=== PATIENT | female | born 1960 | race Caucasian/White ===

== ENCOUNTER 2018-12-06 02:01 | Emergency (ER) | payer MEDICAID, OTHER ==
[~2018-12-06] VITALS: Ht 162.6 cm; Wt 120.0 kg
[2018-12-06 02:05] VITALS: BP 160/107
[2018-12-06] MEDS ORDERED: diphenhydrAMINE 50 mg/ml inj IV ONE (03:00)
[2018-12-06] MEDS ORDERED: normal saline 1000ML IV soln IVB ONE (03:00)
[2018-12-06] MEDS ORDERED: ketorolac tromethamine 15mg/ml inj. IV ONE (03:00)
[2018-12-06] MEDS ORDERED: proCHLORperazine 10 MG/2 ml inj IV ONE (03:00)
[2018-12-06] MEDS ORDERED: SUMAtriptan succ. 6 MG/0.5ml vial SQ ONE (03:00)
[2018-12-06] MEDS ORDERED: SUMA100T PO (03:47)
--- NOTE | 2018-12-06 04:09 | NUR ---
PT ASLEEP IN ROOM. DR GAXIOLA NOTIFIED OF PT CONDITION. HE WANTS PT TO BE LEFT IN ROOM TO SLEEP UNTIL 0600
--- NOTE | 2018-12-06 04:42 | NUR ---
UPON DC, PT RE-EDUCATED ON SIDE EFFECTS OF MEDS AND NEED FOR FAMILY TO GIVE HER A RIDE HOME. SHE STATED UNDERSTANDING AND WILL CALL FAMILY FROM LOBBY.
== END 2018-12-06 04:43 | disposition home or self-care (01) ==
LOC: ER 02:01
DX: G43.909 Migraine, unspecified, not intractable, without status migrainosus (principal); R10.9 Unspecified abdominal pain; J35.1 Hypertrophy of tonsils; R07.0 Pain in throat; Z90.710 Acquired absence of both cervix and uterus
CPT/HCPCS: 96372; 96374; 96375; 99283; J0780; J1200; J1885; J7030; J3030

== ENCOUNTER 2021-08-24 11:23 | Emergency (ER) | payer MEDICAID ==
[~2021-08-24] VITALS: Ht 162.6 cm; Wt 120.0 kg
[2021-08-24 12:24] LABS: BASOPHILS % (AUTO) 0.4 % (0-1); EOSINOPHILS # (AUTO) 0.1 X10'3 (0-0.9); EOSINOPHILS % (AUTO) 2.2 % (0-6); HEMATOCRIT 42.7 % (35.0-45.0); HEMOGLOBIN 14.5 g/dl (12.0-16.0); LYMPHOCYTES # (AUTO) 2.5 X10'3 (1.1-4.8); LYMPHOCYTES % (AUTO) 38.3 % (21-51); MEAN CORPUSCULAR HEMOGLOBIN 29.3 PG (27.0-31.0); MEAN CORPUSCULAR HGB CONC 33.9 g/dL (33.0-36.5); MEAN CORPUSCULAR VOLUME 86.6 FL (78-98); MEAN PLATELET VOLUME 9.6 FL (7.4-10.4); MONOCYTES # (AUTO) 0.4 X10'3 (0-0.9); MONOCYTES % (AUTO) 6.2 % (2-12); NEUTROPHILS # (AUTO) 3.4 X10'3 (1.8-7.7); NEUTROPHILS % (AUTO) 52.9 % (42-75); PLATELET COUNT 223 X10'3 (140-440); RED BLOOD COUNT 4.93 X10'6 (4.20-5.60); RED CELL DISTRIBUTION WIDTH 14.3 % (11.5-14.5); WHITE BLOOD COUNT 6.4 X10'3 (4.5-11.0)
[2021-08-24 12:29] LABS: ALANINE AMINOTRANSFERASE 34 U/L (12-78); ALBUMIN 3.8 G/DL (3.4-5.0); ALBUMIN/GLOBULIN RATIO 1.1 (1.1-1.5); ALKALINE PHOSPHATASE 62 IU/L (46-116); ANION GAP 8 (8-16); ASPARTATE AMINO TRANSFERASE 12 U/L (10-37); BILIRUBIN,TOTAL 0.7 MG/DL (0.1-1.0); BLOOD UREA NITROGEN 14 MG/DL (7-18); BUN/CREATININE RATIO 15.7 (6.6-38.0); CALCIUM 8.3 MG/DL (8.5-10.1); CHLORIDE 108 MMOL/L (99-107); CREATININE 0.89 MG/DL (0.40-0.90); GLUCOSE 95 MG/DL (70-104); SODIUM 143 MMOL/L (135-145); TOTAL CARBON DIOXIDE 26.7 MMOL/L (24-32); TOTAL PROTEIN 7.3 G/DL (6.4-8.2); eGFR 65 ML/MIN
[2021-08-24 12:37] LABS: MAGNESIUM 2.1 MG/DL (1.5-2.4)
[2021-08-24 12:44] VITALS: BP 139/68
== END 2021-08-24 13:26 | disposition home or self-care (01) ==
LOC: ER 11:24
DX: R00.2 Palpitations (principal); R03.0 Elevated blood-pressure reading, without diagnosis of hypertension; F43.0 Acute stress reaction; R07.89 Other chest pain; G43.909 Migraine, unspecified, not intractable, without status migrainosus; R06.02 Shortness of breath; Z90.710 Acquired absence of both cervix and uterus
CPT/HCPCS: 36415; 71045; 80053; 83735; 83880; 84484; 85025; 93005; 99285

== ENCOUNTER 2021-11-09 13:43 | Emergency (ER) | payer MEDICAID ==
[~2021-11-09] VITALS: Ht 162.6 cm; Wt 118.2 kg
[2021-11-09 14:59] VITALS: BP 149/62
[2021-11-09] MEDS ORDERED: CYCL-394 PO (18:15)
[2021-11-09] MEDS ORDERED: IBUP-1985 PO (18:15)
[2021-11-09] MEDS ORDERED: ketorolac trometh. 30mg/ml inj. IM ONE (18:15)
[2021-11-09] MEDS ORDERED: orphenadrine citrate 60mg/2ml inj. IM ONE (18:15)
[2021-11-09] MEDS ORDERED: METH4TAB81 PO (18:15)
== END 2021-11-09 18:37 | disposition home or self-care (01) ==
LOC: ER 13:44
DX: M54.32 Sciatica, left side (principal); G89.29 Other chronic pain; G43.909 Migraine, unspecified, not intractable, without status migrainosus; Z90.710 Acquired absence of both cervix and uterus; Z79.899 Other long term (current) drug therapy
CPT/HCPCS: 96372; 99284; J1885; J2360

== ENCOUNTER 2022-02-10 10:48 | Emergency (ER) | payer MEDICAID ==
[~2022-02-10] VITALS: Ht 162.6 cm; Wt 120.9 kg
[~2022-02-10 10:48] MED LIST: IBUP-1985 PO; METH4TAB81 PO
[2022-02-10 11:22] LABS: BASOPHILS % (AUTO) 0.3 % (0-1); EOSINOPHILS # (AUTO) 0.2 X10'3 (0-0.9); HEMATOCRIT 44.1 % (35.0-45.0); HEMOGLOBIN 15.1 g/dl (12.0-16.0); LYMPHOCYTES # (AUTO) 3.6 X10'3 (1.1-4.8); LYMPHOCYTES % (AUTO) 42.6 % (21-51); MEAN CORPUSCULAR HEMOGLOBIN 29.8 PG (27.0-31.0); MEAN CORPUSCULAR HGB CONC 34.4 g/dL (33.0-36.5); MEAN CORPUSCULAR VOLUME 86.6 FL (78-98); MEAN PLATELET VOLUME 9.4 FL (7.4-10.4); MONOCYTES # (AUTO) 0.4 X10'3 (0-0.9); MONOCYTES % (AUTO) 5.1 % (2-12); NEUTROPHILS # (AUTO) 4.3 X10'3 (1.8-7.7); PLATELET COUNT 226 X10'3 (140-440); RED BLOOD COUNT 5.09 X10'6 (4.20-5.60); RED CELL DISTRIBUTION WIDTH 14.1 % (11.5-14.5); WHITE BLOOD COUNT 8.6 X10'3 (4.5-11.0)
[2022-02-10 12:23] LABS: ALANINE AMINOTRANSFERASE 29 U/L (12-78); ALBUMIN/GLOBULIN RATIO 1.2 (1.1-1.5); ALKALINE PHOSPHATASE 68 IU/L (46-116); ASPARTATE AMINO TRANSFERASE 14 U/L (10-37); BILIRUBIN,TOTAL 0.6 MG/DL (0.1-1.0); BLOOD UREA NITROGEN 19 MG/DL (7-18); BUN/CREATININE RATIO 23.8 (6.6-38.0); CALCIUM 8.8 MG/DL (8.5-10.1); GLUCOSE 93 MG/DL (70-104); MAGNESIUM 1.9 MG/DL (1.5-2.4); TOTAL CARBON DIOXIDE 21.9 MMOL/L (24-32); TOTAL PROTEIN 7.4 G/DL (6.4-8.2); eGFR 73 ML/MIN
[2022-02-10 12:49] LABS: ANION GAP 11 (8-16); CHLORIDE 107 MMOL/L (99-107); POTASSIUM 3.9 MMOL/L (3.5-5.1); SODIUM 140 MMOL/L (135-145)
[2022-02-10] MEDS ORDERED: normal saline 1000ML IV soln IVB ONE (12:55)
[2022-02-10] MEDS ORDERED: ketorolac tromethamine 15mg/ml inj. IV ONE (13:20)
[2022-02-10 14:19] VITALS: BP 134/87
== END 2022-02-10 14:22 | disposition home or self-care (01) ==
LOC: ER 10:48
DX: R00.8 Other abnormalities of heart beat (principal); G43.909 Migraine, unspecified, not intractable, without status migrainosus; R11.2 Nausea with vomiting, unspecified; R42 Dizziness and giddiness; E86.0 Dehydration; R06.02 Shortness of breath; I49.9 Cardiac arrhythmia, unspecified; G89.29 Other chronic pain; Z90.710 Acquired absence of both cervix and uterus; Z79.899 Other long term (current) drug therapy
CPT/HCPCS: 36415; 71045; 80053; 83735; 83880; 84484; 85025; 93005; 96361; 96374; 99285; J1885; J7030

== ENCOUNTER 2023-07-16 17:40 | Emergency (ER) | payer MEDICAID ==
[~2023-07-16] VITALS: Ht 154.9 cm; Wt 123.6 kg
[2023-07-16 23:24] VITALS: BP 176/83; PULSE 68; RESP 18; TEMP 97.2; O2SAT 97
== END 2023-07-16 23:58 | disposition left against medical advice (07) ==
LOC: ER 17:40
DX: S90.32XA Contusion of left foot, initial encounter (principal); Z53.21 Procedure and treatment not carried out due to patient leaving prior to being seen by health care provider; W19.XXXA Unspecified fall, initial encounter; Y93.89 Activity, other specified; Y92.89 Other specified places as the place of occurrence of the external cause; Y99.8 Other external cause status
CPT/HCPCS: 73630; 99281

== ENCOUNTER 2023-11-12 10:42 | Emergency (ER) | payer MEDICAID ==
[~2023-11-12] VITALS: Ht 162.6 cm; Wt 125.0 kg
[2023-11-12 11:30] LABS: BASOPHILS % (AUTO) 0.5 % (0-1); EOSINOPHILS # (AUTO) 0.2 X10'3 (0-0.9); EOSINOPHILS % (AUTO) 2.2 % (0-6); HEMATOCRIT 44.1 % (35.0-45.0); HEMOGLOBIN 14.9 g/dl (12.0-16.0); LYMPHOCYTES # (AUTO) 2.3 X10'3 (1.1-4.8); LYMPHOCYTES % (AUTO) 33.7 % (21-51); MEAN CORPUSCULAR HEMOGLOBIN 29.6 PG (27.0-31.0); MEAN CORPUSCULAR HGB CONC 33.8 g/dL (33.0-36.5); MEAN CORPUSCULAR VOLUME 87.5 FL (78-98); MEAN PLATELET VOLUME 8.9 FL (7.4-10.4); MONOCYTES # (AUTO) 0.5 X10'3 (0-0.9); MONOCYTES % (AUTO) 6.8 % (2-12); NEUTROPHILS # (AUTO) 3.9 X10'3 (1.8-7.7); NEUTROPHILS % (AUTO) 56.8 % (42-75); PLATELET COUNT 253 X10'3 (140-440); RED BLOOD COUNT 5.03 X10'6 (4.20-5.60); RED CELL DISTRIBUTION WIDTH 14.2 % (11.5-14.5); WHITE BLOOD COUNT 6.9 X10'3 (4.5-11.0)
[2023-11-12 11:37] LABS: ALANINE AMINOTRANSFERASE 27 U/L (12-78); ALBUMIN 3.7 G/DL (3.4-5.0); ALBUMIN/GLOBULIN RATIO 0.8 (1.1-1.5); ALKALINE PHOSPHATASE 71 IU/L (46-116); ANION GAP 6 (8-16); ASPARTATE AMINO TRANSFERASE 18 U/L (10-37); BILIRUBIN,TOTAL 0.6 MG/DL (0.1-1.0); BLOOD UREA NITROGEN 17 MG/DL (7-18); BUN/CREATININE RATIO 21.3 (10.0-20.0); CALCIUM 9.1 MG/DL (8.5-10.1); CHLORIDE 104 MMOL/L (99-107); GLUCOSE 111 MG/DL (70-104); SODIUM 137 MMOL/L (135-145); TOTAL CARBON DIOXIDE 27.1 MMOL/L (24-32); TOTAL PROTEIN 8.6 G/DL (6.4-8.2); eCRCL 62 ML/MIN; eGFR 72 ML/MIN
[2023-11-12 11:46] LABS: PRO BRAIN NATRIURETIC PEPTIDE < 30 PG/ML (0-125)
[2023-11-12 14:29] VITALS: BP 153/92; PULSE 91; RESP 16; TEMP 98.3; O2SAT 96
== END 2023-11-12 15:57 | disposition home or self-care (01) ==
LOC: ER 10:43
DX: R07.89 Other chest pain (principal)
CPT/HCPCS: 36415; 80053; 83880; 84484; 85025; 93005; 99285

== ENCOUNTER 2025-09-14 21:15 | Inpatient (IN) | payer MEDICAID ==
[~2025-09-14] VITALS: Ht 162.6 cm; Wt 129.5 kg
[~2025-09-14 21:15] MED LIST changes: -IBUP-1985 PO; +IBUP600T52 PO
[2025-09-14 22:21] LABS: MEAN PLATELET VOLUME 9.1 FL (7.4-10.4); RED CELL DISTRIBUTION WIDTH 14.1 % (11.5-14.5)
[2025-09-14 22:36] LABS: CREATININE 0.91 MG/DL (0.40-0.90); TOTAL CARBON DIOXIDE 29.4 MMOL/L (24-32); eCRCL 43 ML/MIN; eGFR 62 ML/MIN
--- NOTE | 2025-09-15 00:46 | Physician Documentation ---
History of Present Illness General Chief Complaint: Abdominal Pain Stated Complaint: GALLBLADDER PAIN Time Seen by MD: 00:39 Primary Medical Doctor: UNKNOWN History of Present Illness Initial Comments This is a 64-year-old female with a recent diagnosis of cholelithiasis during the biliary colic that she had experienced last week while visiting her daughter in [place], presents for evaluation of right upper quadrant abdominal pain that began 67 hours prior to arrival. No obvious trigger provocation. It is accompanied by bilious vomitus. No particular palliating or aggravating factors were elicited with the patient. Did not attempt to treat it. This is similar to prior biliary colic she had last week. Denies any fever or chills. Denies chest pain or difficulty breathing. Denies any concern for tobacco, alcohol or illicit substances use. Medication Reconciliation Allergies: Coded Allergies: No Known Allergies (Unverified , 11/12/23) Scheduled Ibuprofen (Ibuprofen), 1 TAB PO Q8H Methylprednisolone (Medrol Dosepak), 1 PACKET PO UD Past Medical History Past Medical History: Headache, Migraine, Chronic Back Pain Past Surgical History: hysterectomy Other Past Family History: Father - [place] before 55 Alcohol Use: None Drug Use: none Lives with: Family Lives In: Home Review of Systems ROS 10 point review of systems was performed and unless noted above in HPI is negative for acute process/complaint. Physical Exam Physical Exam Vital Signs: Temperature: 97.6, Source: Temporal, Heart Rate: 85, Respiratory Rate: 15, BP: 181/91, Pulse Oximetry: 98, Weight: 132.000 Physical Exam GENERAL: Awake, alert, oriented, GCS 15, no apparent distress, non-toxic appearing, answers questions, follows commands appropriately. Examined in bed 6. HEENT: Atraumatic, normocephalic, pupils equal, extraocular muscles intact, sclerae anicteric, mucus membranes moist, oropharynx is clear, no stridor. NECK: supple, full active range of motion, trachea midline, no thyromegaly, no lymphadenopathy, no JVD. CARDIOVASCULAR: regular rate/rhythm, no murmurs/gallops/rubs, Pulses are 2+ in all extremities and symmetric. Capillary refill less than 2 seconds. PULMONARY: Nonlabored, good air movement ,no respiratory distress, speaking in full sentences, clear to auscultation bilaterally, no wheezing, no ronchi, no rales, no accessory muscle use. GASTROINTESTINAL: Soft, right upper quadrant tenderness to palpation reproducing chief complaint with a positive Aguilera's sign, no guarding or rebound, non- distended, normal active bowel sounds, no organomegaly, no pulsatile masses, no CVA tenderness. NEUROLOGIC: Lucid with normal mental status. Normal facial symmetry. Moves all extremities symmetrically and with purpose. No truncal ataxia. Speech is fluid without evidence of dysarthria or aphasia, no focal deficits appreciated. MUSCULOSKELETAL: There is full range of motion of all extremities. There is no joint pain or joint swelling or joint erythema. There is no muscle pain or tenderness or swelling. EXTREMITIES: warm, well-perfused, no cyanosis, no clubbing, no edema, no acute deformities. Skin: warm, dry, no rashes or lesions, no jaundice, no petechiae orpurpura. No ecchymosis. PSYCHIATRIC: Normal affect, normal insight, normal concentration. Focused exam: [] Progress Results/Orders Results/Orders Orders - SABRINA MACARIO DO Ultrasound Of Abdomen (09/15/25 ) Ct Abdomen Pelvis (09/15/25 00:41) Hs Troponin I W Calculations (09/15/25 02:41) Completed Orders - SABRINA MACARIO DO Hcg, Ur Ql (09/14/25 21:23) Cbc/Diff (09/14/25 21:23) BMP (09/14/25 21:23) Lipase (09/14/25 21:23) CMP (09/14/25 21:23) Ultrasound Of Abdomen (09/15/25 ) Electrocardiogram (09/15/25 00:41) Ct Abdomen Pelvis (09/15/25 00:41) Hs Troponin I W Calculations (09/15/25 00:41) Morphine 4mg/Ml Inj. (Morphine Inj.) (09/15/25 00:45) Ondansetron Inj. (Zofran 4mg/2ml Vial) (09/15/25 00:45) Normal Saline 1000ml (0.9% Sodium Chlori (09/15/25 00:45) Ua W/Microscopic, Cult If Ind (09/15/25 00:50) Medications Received in ER Medications (Trade) Dose Ordered Sig/Donal Route PRN Reason Start Time Stop Time Status Last Admin Dose Admin (morphine inj.) 4 mg ONCE ONCE IV 09/15/25 00:45 09/15/25 00:51 DC 09/15/25 01:36 4 MG (Zofran 4mg/2ml vial) 4 mg ONCE ONCE IV 09/15/25 00:45 09/15/25 00:51 DC 09/15/25 01:37 4 MG Sodium Chloride 1,000 ml @ 1,000 mls/hr ONCE ONCE IV 09/15/25 00:45 09/15/25 01:44 DC 09/15/25 01:37 1,000 MLS/HR Vital Signs 09/14/25 09/15/25 21:21 01:50 Temp 97.6 97.6 Pulse 85 74 Resp 15 18 B/P (MAP) 181/91 179/107 (131) Pulse Ox 98 93 Laboratory Tests Test 09/14/25 21:54 09/15/25 00:50 09/15/25 02:46 White Blood Count 8.4 Red Blood Count 5.03 Hemoglobin 14.7 Hematocrit 43.1 Mean Corpuscular Volume 85.7 Mean Corpuscular Hemoglobin 29.2 Mean Corpuscular Hemoglobin Concent 34.1 Red Cell Distribution Width 14.1 Platelet Count 258 Mean Platelet Volume 9.1 Neutrophils (%) (Auto) 55.3 Lymphocytes (%) (Auto) 36.0 Monocytes (%) (Auto) 6.0 Eosinophils (%) (Auto) 2.1 Basophils (%) (Auto) 0.6 Neutrophils # (Auto) 4.7 Lymphocytes # (Auto) 3.0 Monocytes # (Auto) 0.5 Eosinophils # (Auto) 0.2 Basophils # (Auto) 0.0 CBC Comment Sodium Level 142 Potassium Level 4.0 Chloride Level 105 Carbon Dioxide Level 29.4 Anion Gap 8 Blood Urea Nitrogen 15 Creatinine 0.91 H Estimated GFR/1.73 m2 62 BUN/Creatinine Ratio 16.5 Glucose Level 114 H Calcium Level 8.7 Total Bilirubin 0.4 Aspartate Amino Transf (AST/SGOT) 12 Alanine Aminotransferase (ALT/SGPT) 26 Alkaline Phosphatase 71 Troponin I High Sensitivity 4 Total Protein 7.3 Albumin 3.9 Globulin 3.4 Albumin/Globulin Ratio 1.1 Lipase 31 Chemistry Comments Urine Specimen Description Non-specified Urine Color Yellow Urine Clarity Slightly cloudy Urine pH 6.0 Urine Specific [place] >=1.030 Urine Protein Negative Urine Glucose (UA) Negative Urine Ketones Trace H Urine Occult Blood Negative Urine Nitrite Positive H Urine Bilirubin Negative Urine Urobilinogen 0.2 Urine Leukocyte Esterase Negative Urine RBC 0-2 Urine WBC 0-4 Urine Squamous Epithelial Cells Many Urine Bacteria 4+ Urine Mucus Moderate Urine Culture Indicated Rejected for culture Volume Urine Centrifuged 5 ml Urine HCG, Qualitative Negative Urine Comment Low volume EKG/XRAY/CT/US/VASC/MRI EKG : Additional Comment EKG was obtained and interpreted by myself shows sinus rhythm of 74, normal AL interval, narrow QRS, no QT prolongation, normal axis, no STEMI. Medical Decision Making Additional information obtaine: old records Findings Facility Status: ED Holds, [facility] process The plan was discussed with the patient, who demonstrates clear understanding of the plan and is in agreement with the plan unless otherwise noted in the chart. All questions have been answered, all concerns were addressed unless otherwise documented. I was available throughout their ED stay for frequent reassessment and questions. Differential Diagnoses (considered and possible or likely): [Differential diagnosis considered includes acute appendicitis, acute cholecystitis, pancreatitis, gastritis, PUD, diverticulitis, mesenteric ischemia, abdominal aortic aneurysm, bowel obstruction, enteritis, colitis, fecal impaction, volvulus, IBS, inflammatory bowel disease, specific food intolerance, peritonitis, perforated viscous, malignancy, UTI, abscess, and abdominal pain NOS. Pelvic source of pain was also considered including endometritis, dysmenorrhea, ovarian cyst, ovarian torsion, PID, TOA, cervicitis, vaginitis, or uterine fibroid. History, physical exam, and workup exclude many of the more serious causes listed above. ] ??Differential Diagnoses (considered and unlikely, not requiring evaluation currently): [Aortic/great vessels dissection was considered but it is unlikely based on absence of ripping, tearing, migratory chest pain, absence of syncope or focal neurologic deficits, physical examination indicating equal and symmetric pulses.] MDM Data Please see HPI for the following: Independent Historians and external Records Review. Historian: [Patient] Independent Historians: ?[Record review] Medication Management: [Reviewed medication list] Social History and determinants: [Reviewed] Please see the body of the note for the following: Any independent interpr etations of ECG, imaging studies. All vitals signs/haemodynamics, ordered tests were independently reviewed and interpreted by myself. Nursing triage complaint and vitals reviewed, additional nursing notes were reviewed as available and I agree unless otherwise noted or documented in contradiction in the chart Vital Signs: Independently reviewed Labs: Independently interpreted Imaging: Independently interpreted Old Medical Records: Independently reviewed, see HPI for relevant summary and information Pulse Oximetry: [96%] interpreted as [normal on room air] by me [Ski Maker: [Regular Rate, Regular rhythm, no ectopy, NSR] reviewed and interpreted by me] Additionally notably showing: [Hemodynamics reviewed. The patient isn't febrile, not tachycardic, no evidence of hypotension respiratory distress. CBC shows no leukocytosis, no neutrophilic predominance. Chemistry is unrema rkable. Liver function is normal. Lipase is normal. Troponin is negative. UA is nondiagnostic for UTI. Ultrasound of the abdomen shows positive Aguilera's sign, gallstones and distended gallbladder however the wall is still normal so as of the duct. The CT of the abdomen and pelvis was obtained showing cholelithiasis without secondary findings of cholecystitis or choledocholithiasis..] Tests considered but not ordered include: [Not applicable] Social Determinants of Health Impact: Patient was evaluated in [facility] [place] access to healthcare due to below par ratio of patient to medical providers. [] Comorbid Conditions Impacting Present Evaluation and Care/Treatment: [Known cholelithiasis] Management Discussions with other Healthcare Providers: [Hospitalist regarding admission] Treatment and Disposition Medication Management (Given or considered): [Fluid resuscitation was provided for treatment of clinically and/or laboratory apparent dehydration. Pain management.]. See EMR for details Consideration for Hospitalization/Escalation/Deescalation of Care: Admission for observation appears to be necessary for further management of her intractable abdominal pain related to her barrier colic and possible evaluation by General surgery in the morning. ?ED Course:?[No clinical improvement or deterioration. Continues to suffer i ntractable pain.] ?Shared decision making:?[] Code status:?FULL Please see the full Electronic Medical Record for full details of nursing documentation, medications list, other records of complete past medical history and conditions, vital signs, laboratory studies, and any radiologic study interpretations by radiologists. Portions of this note were completed using [employer]~Flow™ dictation software and as a result there may exist minor errors in spelling. I have reviewed elements of past family and social history and agree as included in note. Differential Diagnosis See body of main note for her differential diagnosis Departure Disposition: ADMITTED INPATIENT Impression: Primary Impression: Biliary colic Additional Impressions: Intractable abdominal pain Nausea and vomiting Referrals: NO PRIMARY CARE PROVIDER (PCP) Signature Scribe Signature: No scribe Attestation: Date: Sep 15, 2025 Time: 00:43 This note accurately reflects clinical decisions, work performed by myself, DO RENALDO Hays NICHOLAS M DO Sep 15, 2025 00:45
[2025-09-15 01:01] LABS: URINE HCG NEGATIVE (NEG)
[2025-09-15 01:02] LABS: LEUKOCYTE ESTERASE ,URINE NEGATIVE (Neg); NITRITES, URINE POSITIVE (Neg); OCCULT BLOOD,URINE NEGATIVE (Neg)
--- NOTE | 2025-09-15 01:04 | ELECTROCARDIOGRAPH REPORT ---
[facility] Test Date: 2025-09-15 Test Time: 01:01:10 Pat Name: JASSI MULLIGAN Department: [facility]- Patient ID: [facility]-[id number] Room: [place] [id number] Gender: F Diving Instructor: : 1960 Requested By: SABRINA MACARIO Order Number: [id number] Reading MD: Dr. Ryan Simpson Measurements Intervals [place] Rate: 74 P: 37 [place]: 177 QRS: 1 QRSD: 101 T: 4 QT: 400 QTc: 444 Interpretive Statements Sinus rhythm Consider left atrial enlargement Low voltage, precordial leads Borderline T abnormalities, anterior leads Electronically Signed On 09-17-2025 9:40:[address] Ryan Simpson Please click the below link to view image of tracing.
[2025-09-15 01:08] LABS: UA COLLECTION TYPE NON-SPECIFIED
[2025-09-15 01:10] LABS: MUCUS STRANDS MODERATE /LPF (Neg); SQUAMOUS EPITHELIAL CELL,UR MANY /LPF (FEW)
[2025-09-15] MEDS: morphine 4 MG/ML inj SYRINge IV ONE (01:36)
[2025-09-15] MEDS: normal saline 1000ml 1,000 ML IV ONE (01:37)
[2025-09-15] MEDS: ondansetron/PF 4mg/2ml inj IV ONE (01:37)
--- NOTE | 2025-09-15 02:16 | RADIOLOGY REPORT ---
INDICATION: RUQ pain and n/v TECHNIQUE: Multiple real-time sonographic images of the abdomen were obtained. COMPARISON: None FINDINGS: Liver is homogenous in echogenicity. The liver measures 13.2 cm. No intrahepatic biliary ductal dilatation is noted. Gallbladder appears distended. No overt wall thickening. Several gallstones are noted in the gallbladder neck. No surrounding edema. Sonographic Aguilera's sign is positive. The common duct measures 0.3 cm and is unremarkable. The right kidney measures 11.1 cm. No hydronephrosis. The pancreas is not well visualized due to obscuration from bowel gas. IMPRESSION: Somewhat equivocal findings with gallstones, gallbladder distention, and positive sonographic aguilera's sign however no wall thickening or surrounding edema to more definitively suggest acute cholecystitis at this time. Close follow-up recommended.
--- NOTE | 2025-09-15 02:37 | RADIOLOGY REPORT ---
Exam: CT CT ABDOMEN PELVIS W/ IV CONTRAST History: Right side of the abdominal pain COMPARISON: US ULTRASOUND OF ABDOMEN on DOS: 09/15/25 Technique: Multidetector spiral CT of the abdomen and pelvis was performed from lung bases to pubic symphysis. Intravenous contrast was administered during this examination. Portal venous imaging was obtained. Axial, coronal and sagittal multiplanar reformats were performed by the technologist on a separate workstation. Radiation Dose : 1. Abdomen/Pelvis: CTDIvol 29.22 mGy, DLP 1535.26 mGy*cm. CONTRAST: Type of contrast: Omnipaque 300 Contrast injected: 100 ml Findings: Lung Bases: No acute or significant lung base finding. Normal heart size. No pleural or pericardial effusion. Liver: The liver is normal in size. No focal lesions. Normal hepatic vascular enhancement. Gallbladder and Biliary Tree: Cholelithiasis noted without secondary findings of cholecystitis or biliary obstruction. Spleen: Unremarkable Pancreas: The pancreas is normal in appearance without focal lesions or abnormal enhancement. Adrenal Glands: Unremarkable Kidneys: No hydronephrosis. Bladder: Unremarkable Bowel: The stomach is grossly normal in appearance. Small bowel and colon are normal in caliber and distribution. Normal appendix is visualized in the right lower quadrant without findings of appendicitis. Ascites: Absent Lymphadenopathy: No mesenteric, retroperitoneal or periportal lymphadenopathy. Abdominal Wall and Mesentery: Unremarkable. Vasculature: The visualized abdominal aorta is normal in size and caliber. Abdominal and pelvic vessels demonstrate normal enhancement. Pelvic Organs: Unremarkable Musculoskeletal: No aggressive focal bony lesions, acute fractures or dislocation. IMPRESSION: No acute abdominal or pelvic finding. Radiation optimization: All CT scans at this facility use at least one of these dose optimization techniques: automated exposure control mA and/or kV adjustment per patient size (includes targeted exams where dose is matched to clinical indication) or iterative reconstruction.
[2025-09-15] MEDS: normal saline 1000ML IV soln IVB ONE (03:48)
[2025-09-15] MEDS: fentaNYL/PF 50MCG/1 ML 2ML syringe IV ONE (03:48)
[2025-09-15] MEDS ORDERED: magnesium sulf-water 2g/50mL 50 ML IV PRN (03:50)
[2025-09-15] MEDS ORDERED: potassium Cl 40MEQ/1/2NS 520ml 520 ML IV PRN (03:50)
[2025-09-15] MEDS ORDERED: potassium Cl 20 mEq SR tablet PO PRN ×2 (03:50)
[2025-09-15] MEDS ORDERED: magnesium Cl slow-release 64mg tablet PO PRN (03:50)
[2025-09-15] MEDS ORDERED: HYDROcodone/acetaminophen 5mg/325mg tablet PO PRN (03:50)
[2025-09-15] MEDS ORDERED: magnesium sulf-water 4G/100mL 100 ML IV PRN (03:50)
[2025-09-15] MEDS: piperacillin/tazo 4.5gm/100ml 100 ML IV ONE (04:08)
--- NOTE | 2025-09-15 04:15 | HISTORY AND PHYSICAL-Residence ---
History & Physical Providers to CC Resident Creating Document: CLARITA HAWTHORNE RES CC: JESSICA ARGUELLES MD ~ History of Present Illness Primary Medical Doctor: PATIENT DOES NOT REMEMBER HER PCP NAME Reason for Admit\Complaint: Right upper quadrant pain since yesterday evening History of Present Illness 64-year-old female with obesity, hypertension, GERD, presented to the ER with chief complaints of right upper quadrant pain since yesterday night. Patient stated she ate shrimp salad after that she felt sharp burning pain with intensity of 9/10 over the right upper quadrant with radiation to back. Pain is associated with nausea and multiple episodes of bilious vomitings. She denies hematemesis. Denies fever. Denies diarrhea/constipation. Denies no recent weight changes. Ten days ago she had similar kind of pain and went to ER in [facility] and was told she had gallstones. Allergies: Coded Allergies: No Known Allergies (Unverified , 11/12/23) Home Medications Home Medications Active Medrol Dosepak (Methylprednisolone) 4 Mg Tab.ds.pk 1 Packet PO UD Ibuprofen 600 Mg Tablet 1 Tab PO Q8H 10 Days Past Medical History Past Medical History Hypertension Plantar fasciitis GERD Obesity Past Surgical History Surgical History Comment Hysterectomy Back surgery Hip surgery Past Social History Social History Comment Nonsmoker, denies alcohol abuse Denies illicit drug use Independent for ADLs Alcohol Use: None Drug Use: None Lives with: Family Lives In: Home ROS ROS ROS Constitutional: No fever, dizziness, weakness. no change in appetite/weight HEENT: No blurring of the vision, No sore throat, epistaxis, tinnitus Cardiovascular: No chest pain/discomfort, palpitations, syncope. No pedal edema Respiratory: No sob, cough,, hemoptysis Gastrointestinal: Positive for abdominal pain, nausea, vomiting. No diarrhea, constipation, melena. Genitourinary: No frquency, urgency, incontinence, nocturia. No dysuria, hematuria Musculoskeletal: No arthralgia, myalgia Endocrine: No fatigue, polydipsia, polyuria. No heat or cold intolerance Neurologic: No headache, vertigo. No weakness, numbness or tingling of extremities Psychiatric: No hallucinations/delusions, no anhedonia, no suicidal ideation\ Hematologic: No bleeding or bruises Reviewed in full. All negative except for pertinent positives in HPI Exam Vitals: Vital Signs Date Time Temp Pulse Resp B/P (MAP) Pulse Ox O2 Delivery O2 Flow Rate FiO2 09/15/25 01:50 97.6 74 18 179/107 (131) 93 General: General: Pleasant elderly female, obese, AAO x4, not in apparent distress Head: Normocephalic with an atraumatic Eyes: Pupils- 3mm, reacting to light, conjunctiva- anicteric Nose and throat: No polyps, septum- normal, no mucosal ulcers Neck: Supple, no lymphadenopathy, no carotid bruit Respiratory: No use of accessory muscles of respiration, Bilateral normal vesiscular breath sounds heard. No wheeze, rhochi or creps Cardiac: S1-S2 heard, rythm regular, no gallop/murmur Abdomen: Obese, tenderness over the palpation in the right upper quadrant, no rigidity/guarding no organomegaly, bowel sounds- heard Extremities: no clubbing, no pedal edema, no deformities, peripheral pulses- 2+ Skin: warm and dry, no rash, no purpura Neuro: No focal deficit, gross cranial nerve exam- normal Diagnostic Data Last Recorded Lab Results: [id number]/[id number] Additional Plan 64-year-old female with obesity, hypertension, GERD, presented to the ER with chief complaints of right upper quadrant pain since yesterday night Biliary colic Acute cholelithiasis Unable to exclude acute cholecystitis -CBC normal, CMP common, lipase normal -ultrasound abdomen cholelithiasis, somewhat equivocal findings for gallbladder distention with positive sonographic Aguilera's sign however no wall thickening or surrounding edema to definitely suggest acute cholecystitis -CT abdomen cholelithiasis Plan -we will do HIDA scan for confirming cholecystitis -in the meanwhile continue Zosyn 3.375 q.8h, DC if cholecystitis is ruled out -continue morphine and Adin for pain -continue NS at 100 cc/hour -NPO and pending surgical consult Hypertension -continue losartan 25 mg once daily GERD -continue Protonix 40 mg p.o. once daily Obesity -would benefit from outpatient weight loss medications Code Status: Full code Line/tube: PIV DVT prophylaxis: Lovenox Nutrition: NPO PT: yes Prognosis: Guarded Disposition: Continue care in surgical floor, HIDA scan pending, pending surgical consult Clarita Hawthorne MD IM PGY-3 resident I saw and discussed the care of this patient with the resident team and I agree with the assessment and plan as documented Thank you Date of Service: Sep 15, 2025 Billing Provider: JESSICA ARGUELLES MD [facility] Sep 15, 2025 04:15 JESSICA ARGUELLES MD Sep 15, 2025 12:40
[2025-09-15] MEDS ORDERED: OMEP40CA21 PO (04:18)
[2025-09-15] MEDS ORDERED: LOSA25TA41 PO (04:18)
[2025-09-15] MEDS: normal saline 1000ml 1,000 ML IV SCH (04:21)
[2025-09-15 05:15] VITALS: BP 166/84; PULSE 82; RESP 15; TEMP 97.7; O2SAT 100
[2025-09-15] MEDS ORDERED: iohexol 300mg/ml 100ml inj. ONE (05:18)
[2025-09-15] MEDS: K and/or MAG REPLACEMENT MC SCH (08:00)
[2025-09-15 08:45] VITALS: RESP 16
[2025-09-15] MEDS: pantoprazole 40mg Tablet.DR PO SCH (08:46)
[2025-09-15] MEDS: docusate sod 100mg capsule PO SCH (08:47)
[2025-09-15] MEDS: ketorolac trometh 30MG/ML vial 30 MG/ML VIAL IV ONE (08:48)
[2025-09-15] MEDS: ondansetron/PF 4mg/2ml inj IV PRN (08:48)
[2025-09-15] MEDS: enoxaparin 40mg/0.4ml syringe SUBCUT SCH (08:49)
[2025-09-15 09:03] LABS: MEAN PLATELET VOLUME 9.8 FL (7.4-10.4); RED CELL DISTRIBUTION WIDTH 14.5 % (11.5-14.5)
[2025-09-15 09:25] LABS: CREATININE 0.85 MG/DL (0.40-0.90); TOTAL CARBON DIOXIDE 22.9 MMOL/L (24-32); eCRCL 46 ML/MIN; eGFR 67 ML/MIN
[2025-09-15 11:30] VITALS: BP 123/72; PULSE 79; RESP 16; TEMP 97.5; O2SAT 96
[2025-09-15] MEDS ORDERED: piperacillin/tazo 4.5gm/100ml 100 ML IV SCH (12:00)
--- NOTE | 2025-09-15 17:02 | RADIOLOGY REPORT ---
Procedure: NM NM HIDA SCAN Comparison: None Reason for study, clinical history: Right upper quadrant Technique: The patient was held NPO prior to the intravenous injection of 5.5 mCi of technetium 99m labeled Choletec. A dynamic acquisition was obtained in the anterior and posterior projection over the upper abdomen for 60 minutes. 2 mg of morphine was administered. Findings: There is prompt and homogeneous uptake of radiopharmaceutical within the liver. No large focal defects are seen. Overall the liver appears normal in size. Reflux of radiotracer activity into the stomach. Nonvisualization of the gallbladder. Morphine administration was performed. Persistent nonvisualization of the gallbladder after morphine administration. Prominent area of presumed focal uptake likely related to reflux in the duodenum and stomach Impression: 1. Favor gallbladder obstruction with nonvisualization despite morphine administration.
[2025-09-15 18:00] VITALS: BP 138/77; PULSE 61; RESP 16; TEMP 98; O2SAT 98
[2025-09-15 18:55] VITALS: BP 138/77; PULSE 61; RESP 16; TEMP 98; O2SAT 98
--- NOTE | 2025-09-15 19:06 | PROGRESS NOTE ---
Daily Progress Note Providers to CC ~ Antibiotic Timeout Antibiotic Ordered?: Yes Subjective The patient is states that her abdominal pain is improved, the patient does not endorse having increased abdominal pain with the eating food. The patient has a HIDA scan and the gallbladder was not visualized I did relayed this information to surgeon Dr. Herrera. The patient has no other complaints Objective Vital Signs Date Time Temp Pulse Resp B/P (MAP) Pulse Ox O2 Delivery O2 Flow Rate FiO2 09/15/25 18:02 16 09/15/25 11:30 97.5 79 123/72 (89) 96 Room Air 09/15/25 04:46 0 Result Diagram: 09/15/256 09/15/25245 Gen. No acute distress alert and oriented 4, morbidly obese Lungs clear to ascultation bilaterally, no wheezes rales or rhonchi appreciated Heart normal sinus rhythm no murmurs rubs or clicks noted Abdomen soft mild generalized tenderness, [id number] right upper quadrant tenderness bowel sounds are normoactive Lower extremities no clubbing cyanosis, nor edema appreciated bilaterally Problem\Assessment\Plan # acute cholecystitis Gallbladder was not visualized on HIDA scan I did relayed this information to on-call surgeon Dr. Herrera. Continue IV Zosyn #Hypertension -continue losartan 25 mg once daily #GERD -continue Protonix 40 mg p.o. once daily # morbid obesity -would benefit from outpatient weight loss Code Status: Full code Line/tube: PIV DVT prophylaxis: Lovenox Nutrition: NPO PT: yes Date of Service: Sep 15, 2025 Billing Provider: DORCAS PARK DO Common Visit Codes: NOT BILLABLE (Admitted after midnight to be billed by crop nutrition scientist) DORCAS PARK DO Sep 15, 2025 19:06
[2025-09-15] MEDS: piperacillin/tazo 4.5gm/100ml 100 ML IV SCH (21:12)
[2025-09-15] MEDS: FLU VACC TS2025-26(6MOS UP)/PF (FLULAVAL) 45 MCG/0.5 ML SYRINGE IMVAC ONE (21:12)
[2025-09-15 22:00] VITALS: BP 119/62; PULSE 75; RESP 14; TEMP 97.8; O2SAT 98
[2025-09-16] VITALS (31 sets, daily range): BP systolic 116–159; BP diastolic 61–126; PULSE 16–103; RESP 13–20; TEMP 97.3–98.2; O2SAT 94–98
[2025-09-16 05:30] LABS: MEAN PLATELET VOLUME 9.3 FL (7.4-10.4); RED CELL DISTRIBUTION WIDTH 14.3 % (11.5-14.5)
[2025-09-16 05:46] LABS: CHOL/HDL RATIO 3.0 (0.00-4.99); CREATININE 0.78 MG/DL (0.40-0.90); LDL CHOLESTEROL 94 MG/DL (50-100); TOTAL CARBON DIOXIDE 25.5 MMOL/L (24-32); eCRCL 63 ML/MIN; eGFR 74 ML/MIN
--- NOTE | 2025-09-16 12:28 | PROGRESS NOTE ---
Progress Note ID Providers to CC ~ Progress Note Progress Note: pt seen and examined-needs carlita miranda open-discussed procedure including risks/benefits/alternatives FREDERIC ANNE MD Sep 16, 2025 12:28
[2025-09-16 13:20] LABS: PRE OP INR 1.1 INR; PRE OP PROTIME 10.9 SECONDS (9.0-12.0)
[2025-09-16] MEDS: dextrose 50%-water 50ml dispensing syringe IV ONE ×2 (13:55→14:05)
[2025-09-16] MEDS ORDERED: BUPIVAcaine 2.5mg/ml inj 50ml vial (contains preservative) ONE (14:24)
[2025-09-16] MEDS ORDERED: HYDROmorphone/PF 0.2 MG/ML SYRINGE IV PRN (15:20)
[2025-09-16] MEDS ORDERED: fentaNYL/PF 50MCG/1 ML 2ML syringe IV PRN (15:20)
[2025-09-16] MEDS ORDERED: hydrALAZINE 20mg/ml inj. IV PRN (15:20)
[2025-09-16] MEDS ORDERED: ondansetron/PF 4mg/2ml inj IV PRN (15:20)
[2025-09-16] MEDS ORDERED: labetalol 20mg/4ml (5mg/ml) syringe IV PRN (15:20)
[2025-09-16] MEDS: BUPIVAcaine/PF 2.5 mg/ml (0.25%) 30ml vial IJ ONE ×2 (15:25→16:39)
[2025-09-16] MEDS ORDERED: propofol inj 20 ML IV ONE (15:27)
[2025-09-16] MEDS ORDERED: midazolam 1 mg/ML 2ml injection ONE (15:27)
[2025-09-16] MEDS ORDERED: fentaNYL/PF 50MCG/1 ML 2ML syringe ONE (15:27)
[2025-09-16] MEDS ORDERED: dexamethasone sod phosphate 4mg/ml inj. ONE (16:34)
[2025-09-16] MEDS ORDERED: ondansetron/PF 4mg/2ml inj ONE (16:34)
[2025-09-16] MEDS ORDERED: rocuronium 10mg/ml inj IV ONE (16:34)
[2025-09-16] MEDS ORDERED: glycopyrrolate 0.2mg/ml inj ONE (16:35)
--- NOTE | 2025-09-16 16:41 | OPERATIVE REPORT ---
Operative Report Providers to CC ~ Date of Procedure: Sep 16, 2025 Pre-Operative Diagnosis: cholelithiais/cholecystitis Post-Operative Diagnosis SAME as PRE-Op Procedure Performed carlita hernandez Surgeon: jacquelyn [employer] Consultant none Anesthesiologist: Devaughn Lechuga Type of Anesthesia: General Findings: cholecystitis/cholelithiasis Estimated Blood Loss: min Specimen Removed: FREDERIC Lugo MD Sep 16, 2025 16:40
[2025-09-16] MEDS ORDERED: PCA WASTE DOCUMENTATION 1 MG ML MC SCH (16:45)
[2025-09-16] MEDS ORDERED: HYDROcodone/acetaminophen 5mg/325mg tablet PO PRN (16:45)
[2025-09-16] MEDS ORDERED: HYDROmorphone inj. 0.5 MG/0.5 ML DISP.SYRIN IV PRN (16:50)
[2025-09-16] MEDS: acetaminophen 1,000mg/100ml IV 100 ML IV PRN (17:14)
[2025-09-16] MEDS: fentaNYL/PF 50MCG/1 ML 2ML syringe IV PRN (17:19)
--- NOTE | 2025-09-16 17:30 | OPERATIVE REPORT ---
DATE OF SURGERY: 09/16/2025 DICTATING PHYSICIAN: Sandeep Herrera MD PREOPERATIVE DIAGNOSES: Cholelithiasis with cholecystitis. POSTOPERATIVE DIAGNOSES: Cholelithiasis with cholecystitis. PROCEDURE PERFORMED: Robotic david. SURGEON: Sandeep Herrera MD CALENDERING SUPERVISOR: None. ANESTHESIA: General. DRAINS: None. INDICATIONS FOR OPERATION: The patient is a 64-year-old female who presents with abdominal pain. She had a positive HIDA scan as well as cholelithiasis on ultrasound. Taken to surgery for robotic cholecystectomy. INTRAOPERATIVE FINDINGS: Severe colicystitis with cholelithiasis. DESCRIPTION OF PROCEDURE: The patient was placed supine on the operating table. After induction of general anesthesia and placement of endotracheal tube, the abdomen was prepped and draped. A subumbilical incision was then made and Cheryl port placed using open technique. Pneumoperitoneum was begun by insufflation of CO2. Four ports were placed across the lower and mid abdomen, one in the left lower quadrant and one in the midline and two in the right. Robot was then brought to the field. Camera port docked, camera placed, camera targeted. Additional ports were then docked and instruments placed. Abdomen was then explored after the robot was brought to the field. Gallbladder fundus was grasped and retracted cephalad. Cystic duct identified, isolated, ligated, clipped and divided the cystic artery. The gallbladder was mobilized off the gallbladder fossa using electrocautery. Hemostasis was found to be adequate. Robotic instruments were removed from the field. After robotic instruments were removed, the gallbladder was placed in a lap bag using the laparoscope. Abdomen was then copiously irrigated with antibiotic-containing solution. Ports were then removed. Under laparoscopic vision with no evidence of active bleeding, final port and camera withdrawn as well as gallbladder was removed using Endobag. Hemostasis was found to be adequate. Wounds were closed in layers. Skin was closed with subcuticular stitch. Dressing was applied. The patient was transferred to recovery room in stable condition after reversing from general anesthesia. Sandeep Herrera MD TID: [id number] RECEIPT: [id number] KB/KRISTINE
--- NOTE | 2025-09-16 18:38 | CONSULTATION ---
DATE OF CONSULTATION: 09/16/2025 DICTATING PHYSICIAN: Sandeep Herrera MD REASON FOR CONSULTATION: Evaluation of abnormal HIDA scan. HISTORY OF PRESENT ILLNESS: The patient is a 64-year-old female who presented to the ER with complaints of abdominal discomfort, found to have cholelithiasis. HIDA scan was positive for cystic duct obstruction. Surgical evaluation was requested. On further questioning, the patient states pain is much improved. He has had cholelithiasis diagnosed in the past without surgical intervention. PAST MEDICAL HISTORY: Significant for obesity, hypertension, GERD, plantar fasciitis. PAST SURGICAL HISTORY: Hysterectomy, back procedure, hip procedure. HOME MEDICATIONS: Include methylprednisolone, Motrin as needed. ALLERGIES: None. SOCIAL HISTORY: The patient denies alcohol or drug use. REVIEW OF SYSTEMS: See H and P. PHYSICAL EXAMINATION: GENERAL: He is a well-nourished, obese female in minimal distress. VITAL SIGNS: Unremarkable. HEART: Regular rate and rhythm. LUNGS: Clear to auscultation. ABDOMEN: Minimal tenderness at the present time. No signs of peritonitis. EXTREMITIES: Unremarkable. NEUROLOGIC: Nonfocal. LABORATORY DATA: WBC of 5, hematocrit of 36, platelet count of 195. LFTs include total bilirubin of 0.7. IMAGING STUDIES: HIDA scan shows lack of gallbladder visualization. CT abdomen and pelvis reveals multiple stones with distended gallbladder. IMPRESSION: 1. Cholelithiasis and cholecystitis. 2. Obesity. 3. Hypertension. RECOMMENDATIONS: Robotic cholecystectomy. Sandeep Herrera MD TID: [id number] RECEIPT: [id number] KB/YESENIA
--- NOTE | 2025-09-16 18:57 | PROGRESS NOTE ---
Daily Progress Note Providers to CC ~ Antibiotic Timeout Antibiotic Ordered?: Yes Subjective I evaluated the patient this morning prior to going to surgery- the patient is doing well and had no acute complaints however the patient was moderately tender in the epigastric and right upper quadrant on exam Objective Vital Signs Date Time Temp Pulse Resp B/P (MAP) Pulse Ox O2 Delivery O2 Flow Rate FiO2 09/16/25 18:20 73 18 134/86 (102) 96 Nasal Cannula 4.0 09/16/25 17:01 97.3 Result Diagram: 09/16/2544209/16/25442 Gen. No acute distress alert and oriented 4, morbidly obese Lungs clear to ascultation bilaterally, no wheezes rales or rhonchi appreciated Heart normal sinus rhythm no murmurs rubs or clicks noted Abdomen soft moderate tenderness in the epigastric region and right upper quadrant, [id number] right upper quadrant tenderness bowel sounds are normoactive Lower extremities no clubbing cyanosis, nor edema appreciated bilaterally Coagulation Studies Laboratory Tests Test 09/16/25 12:44 Prothrombin Time 10.9 SECONDS (9.0-12.0) INR International Normalized Ratio 1.1 INR Problem\Assessment\Plan # acute cholecystitis Gallbladder was not visualized on HIDA scan I did relayed this information to on-call surgeon Dr. Herrera. Continue IV Zosyn 09/16 status post robotic laparoscopic cholecystectomy this afternoon with Dr. Herrera it was discovered the patient has severe cholecystitis with cholelithiasis #Hypertension -continue losartan 25 mg once daily #GERD -continue Protonix 40 mg p.o. once daily # morbid obesity -would benefit from outpatient weight loss Code Status: Full code Line/tube: PIV DVT prophylaxis: Lovenox Disposition: Anticipate discharge in the next 1-2 days. Date of Service: Sep 16, 2025 Billing Provider: DORCAS PARK DO Common Visit Codes: [id number] INP/OBS CARE(HIGH) DORCAS PARK DO Sep 16, 2025 18:57
[2025-09-16] MEDS: HYDROmorphone inj. 0.5 MG/0.5 ML DISP.SYRIN IV PRN (19:21)
[2025-09-16] MEDS: ringers solution, lacted 1,000 ML IV SCH (20:39)
[2025-09-16] MEDS: ketorolac trometh 30MG/ML vial 30 MG/ML VIAL IV SCH (21:14)
[2025-09-17] VITALS (8 sets, daily range): BP systolic 123–152; BP diastolic 60–81; PULSE 72–99; RESP 16–20; TEMP 96.9–98.3; O2SAT 94–100
[2025-09-17] MEDS ORDERED: ketorolac trometh 30MG/ML vial 30 MG/ML VIAL IV SCH (02:00)
[2025-09-17 06:12] LABS: MEAN PLATELET VOLUME 9.8 FL (7.4-10.4); RED CELL DISTRIBUTION WIDTH 14.1 % (11.5-14.5)
[2025-09-17 06:33] LABS: CREATININE 0.69 MG/DL (0.40-0.90); TOTAL CARBON DIOXIDE 26.3 MMOL/L (24-32); eCRCL 71 ML/MIN; eGFR 86 ML/MIN
[2025-09-17] MEDS: HYDROcodone/acetaminophen 10/325mg tab PO PRN (08:58)
--- NOTE | 2025-09-17 18:53 | PROGRESS NOTE ---
Progress Note ID Providers to CC ~ Progress Note Progress Note: doing well/home in am FREDERIC ANNE MD Sep 17, 2025 18:53
--- NOTE | 2025-09-17 19:06 | PROGRESS NOTE ---
Daily Progress Note Providers to CC ~ Antibiotic Timeout Antibiotic Ordered?: Yes Subjective The patient has tolerated a clear liquid diet this morning, has been okayed for discharge in the a.m. by Dr. Herrera Objective Vital Signs Date Time Temp Pulse Resp B/P (MAP) Pulse Ox O2 Delivery O2 Flow Rate FiO2 09/17/25 16:06 16 09/17/25 10:00 98.3 77 133/60 (84) 94 Room Air 09/17/25 06:00 2.0 Result Diagram: 09/17/2543209/17/25432 Gen. No acute distress alert and oriented 4, morbidly obese Lungs clear to ascultation bilaterally, no wheezes rales or rhonchi appreciated Heart normal sinus rhythm no murmurs rubs or clicks noted Abdomen soft, nontender, bowel sounds are normoactive Lower extremities no clubbing cyanosis, nor edema appreciated bilaterally Coagulation Studies Laboratory Tests Test 09/16/25 12:44 Prothrombin Time 10.9 SECONDS (9.0-12.0) INR International Normalized Ratio 1.1 INR Problem\Assessment\Plan # acute cholecystitis Gallbladder was not visualized on HIDA scan I did relayed this information to on-call surgeon Dr. Herrera. Continue IV Zosyn 09/16 status post robotic laparoscopic cholecystectomy this afternoon with Dr. Herrera it was discovered the patient has severe cholecystitis with cholelithiasis #Hypertension -continue losartan 25 mg once daily #GERD -continue Protonix 40 mg p.o. once daily # morbid obesity -would benefit from outpatient weight loss Code Status: Full code Line/tube: PIV DVT prophylaxis: Lovenox Disposition: Discharge in the a.m. Date of Service: Sep 17, 2025 Billing Provider: DORCAS PARK DO Common Visit Codes: [id number] INP/OBS CARE(HIGH) DORCAS PARK DO Sep 17, 2025 19:06
[2025-09-18 05:48] LABS: MEAN PLATELET VOLUME 9.4 FL (7.4-10.4); RED CELL DISTRIBUTION WIDTH 14.4 % (11.5-14.5)
[2025-09-18 06:13] LABS: CREATININE 0.85 MG/DL (0.40-0.90); TOTAL CARBON DIOXIDE 26.6 MMOL/L (24-32); eCRCL 58 ML/MIN; eGFR 67 ML/MIN
[2025-09-18 06:37] VITALS: BP 149/78; PULSE 63; RESP 20; TEMP 97.5; O2SAT 97
[2025-09-18 07:30] VITALS: RESP 16
[2025-09-18] MEDS ORDERED: LACT1CAP26 PO (09:51)
[2025-09-18] MEDS ORDERED: HYDR-3972 PO (09:51)
[2025-09-18] MEDS ORDERED: AMOX-117 PO (09:51)
--- NOTE | 2025-09-18 10:04 | DISCHARGE SUMMARY ---
Discharge Summary Providers to CC ~ Discharge Summary Admission Diagnosis: cholelithiais/cholecystitis Hospital Course DATE OF ADMISSION: 09/15/2025 DATE OF DISCHARGE: 09/18/2025 Discharge Diagnosis\\Comment: Severe acute cholecystitis with cholelithiasis, hypertension, GERD, morbid obesity Operations\\Procedures: Robotic laparoscopic cholecystectomy Consultants: Dr Sandeep Herrera surgeon Complications: None Condition on DC: Stable New Medications: Amox Tr/Potassium Clavulanate (Augmentin 875-125 Tablet) 1 Each Tablet 1 TAB PO Q12H for 7 Days, #14 TAB Lactobacillus Rhamnosus (Culturelle) 10 Billion Cell Capsule 1 EACH PO BID, #30 CAP Hydrocodone Bit/Acetaminophen (Hydrocodon-Acetaminophn 10-325 tablet) 10mg- 325mg Tablet 1 TAB PO Q8H PRN for SEVERE PAIN 7-10, #15 TAB Continued Medications: Ibuprofen (Ibuprofen) 600 Mg Tablet 1 TAB PO Q8H for 10 Days, #30 TAB Losartan Potassium (Losartan Potassium) 25 Mg Tablet 1 TAB PO DAILY Omeprazole (Prilosec) 40 Mg Capsule 1 CAP PO DAILY Discharge Summary: The patient is admitted by resident physician CLARITA Montalvo MD, under the supervision of JESSICA Dhaliwal MD the following HPI:"64-year-old female with obesity, hypertension, GERD, presented to the ER with chief complaints of right upper quadrant pain since yesterday night. Patient stated she ate shrimp salad after that she felt sharp burning pain with intensity of 9/10 over the right upper quadrant with radiation to back. Pain is associated with nausea and multiple episodes of bilious vomitings. She denies hematemesis. Denies fever. Denies diarrhea/constipation. Denies no recent weight changes. Ten days ago she had similar kind of pain and went to ER in [facility] and was told she had gallstones." The patient has a HIDA scan which the gallbladder was not visualized even after morphine was administered took the patient for a robotic laparoscopic cholecystectomy and discovered severe cholecystitis with cholelithiasis. The patient has a unremarkable postop hospitalization and surgeon requested that the patient be discharged on antibiotics and the patient is discharged with a prescription for Augmentin one tablet b.i.d. for seven days along with Culturelle one tablet b.i.d. for 15 days the patient was experiencing some pain however and was discharged with a prescription for [place] 07/3251 tablet every 8 hours for severe pain a total of 15 tablets. The patient continues losartan for hypertension her blood pressure was under acceptable control during hospitalization. Gen. No acute distress alert and oriented 4 Lungs clear to ascultation bilaterally, no wheezes rales or rhonchi appreciated Heart normal sinus rhythm no murmurs rubs or clicks noted Abdomen soft nontender bowel sounds are normoactive Lower extremities no clubbing cyanosis, nor edema appreciated bilaterally The patient felt ready to be discharged and was medically cleared to be discharged on 09/18/2025 The patient was seen and evaluated on day of discharge. Time spent on discharge 35 minutes. The patient is recommended to follow up with Dr. Herrera in one-week however the patient is going to be out of the area in his moving to [facility]. The patient does not have a PCP and was recommended then to follow up with an urgent care clinic in one-week. *Problems/Diagnosis: (1) Cholecystitis, acute with cholelithiasis Total Time Spent on D/C: > 30 Minutes Date of Service: Sep 18, 2025 Billing Provider: DORCAS PARK DO Common Visit Codes: [id number]-XZB/OBS DISCH DAY >30min DORCAS PARK DO Sep 18, 2025 10:03
[2025-09-18 10:05] VITALS: BP 142/74; PULSE 60; RESP 18; TEMP 98.6; O2SAT 97
--- NOTE | 2025-09-18 16:25 | PATHOLOGY REPORT ---
[facility] [address] [place] [address] SURGICAL PATHOLOGY REPORT CaseNumber: [id number] Surgeon:Sandeep Herrera PA-C CLINICAL INFORMATION CLINICAL INFORMATION: Not provided. DIAGNOSIS DIAGNOSIS: GALLBLADDER; ROBOTIC-ASSISTED CHOLECYSTECTOMY - CHRONIC CHOLECYSTITIS. - CHOLELITHIASIS. MICROSCOPIC DESCRIPTION MICROSCOPIC DESCRIPTION: Performed. GROSS DESCRIPTION GROSS DESCRIPTION: Received in a container of formalin labeled with the patient's name, number, and "gallbladder" is an intact gallbladder which measures 8 cm long by 3.5 cm in diameter. The serosa is purple ferrer. The surgical bed is unremarkable. Sectioning reveals a moderate amount of viscous dark green bile and a 6 x 6 x 0.8 cm aggregate of irregularly shaped yellow stones which measure up to 0.8 cm. The mucosa is red and granular. A discrete mass lesion is not identified. The wall of the gallbladder measures up to 0.8 cm thick. Cloth Bin Packer sections of the neck and wall of the gallbladder are submitted as A1.The time at which the specimen was removed was 1625. The time at which the specimen was placed in formalin was 1638. (ilgalilea) Electronically signed by: Toni Solares, 09/18/2025 3:51:00 PM
== END 2025-09-18 11:22 | disposition home or self-care (01) | DRG 263 ==
LOC: ER 21:15 → ED HOLD 09-15 03:53 → SUR 3N 09-15 05:15 → PACU 09-16 14:05 → SUR 3N 09-16 19:10
PROVIDERS: ADMIT Internal Medicine; ATTEND Family Medicine
PROC: BW211ZZ Computerized Tomography (CT Scan) of Abdomen and Pelvis using Low Osmolar Contrast (ICD-10-PCS; 2025-09-15)
PROC: CF141ZZ Planar Nuclear Medicine Imaging of Gallbladder using Technetium 99m (Tc-99m) (ICD-10-PCS; 2025-09-15)
PROC: 8E0W4CZ Robotic Assisted Procedure of Trunk Region, Percutaneous Endoscopic Approach (ICD-10-PCS; 2025-09-16)
PROC: 0FT44ZZ Resection of Gallbladder, Percutaneous Endoscopic Approach (ICD-10-PCS; principal; 2025-09-16 15:24)
DX: K80.01 Calculus of gallbladder with acute cholecystitis with obstruction (principal); E66.01 Morbid (severe) obesity due to excess calories; I10 Essential (primary) hypertension; Z68.42 Body mass index [BMI] 45.0-49.9, adult; G43.909 Migraine, unspecified, not intractable, without status migrainosus; K21.9 Gastro-esophageal reflux disease without esophagitis; Z90.710 Acquired absence of both cervix and uterus
CPT/HCPCS: 36415; 74177; 76700; 78227; 80053; 80061; 81001; 81025; 82948; 83036; 83690; 83735; 84484; 85025; 85610; 87081; 90471; 93005; 99285; A4215; A4615; A4618; A6449; A7000; A9537; G0378; J0131; J1100; J1171; J1650; J1885; J2250; J2270; J2405; J2543; J2704; J2710; J3010; J3490; J7030; J7120; Q9967